=== PATIENT | male | born 1950 | race Caucasian/White ===

== ENCOUNTER → 2024-05-05 | Outpatient (CLI) | payer MEDICARE, OTHER, SELFPAY ==
[2024-05-05 15:29] LABS: Cardiac Risk Estimate 1.9 RATIO (4.0-6.7); Cholesterol 122 mg/dL (132-200); HDL Cholesterol 63 mg/dL (40-60); LDL Cholesterol,Calculated 51 mg/dL (0-130); Triglycerides 40 mg/dL (30-150)
== END | disposition home or self-care (01) ==
LOC: COPL 11:53
PROVIDERS: Referring Provider Internal Medicine Cardiovascular Disease; Visit Provider Internal Medicine Cardiovascular Disease
DX: E78.00 Pure hypercholesterolemia, unspecified (principal); Z95.1 Presence of aortocoronary bypass graft
CPT/HCPCS: 36415; 80061

== ENCOUNTER → 2024-11-15 | Outpatient (CLI) | payer MEDICARE, OTHER, SELFPAY ==
[2024-11-15 10:54] LABS: Alanine Aminotransferase 11 U/L (10-49); Albumin, Serum 4.4 gm/dL (3.4-4.8); Alkaline Phosphatase 49 U/L (46-116); Aspartate Amino Transferase 22 U/L (0-34); Bilirubin,Direct 0.3 mg/dL (0.0-0.3); Bilirubin,Total 0.9 mg/dL (0.3-1.2); Cardiac Risk Estimate 2.0 RATIO (4.0-6.7); Cholesterol 122 mg/dL (132-200); HDL Cholesterol 62 mg/dL (40-60); LDL Cholesterol,Calculated 46 mg/dL (0-130); Total Protein 6.4 gm/dL (5.7-8.2); Triglycerides 69 mg/dL (30-150)
== END | disposition home or self-care (01) ==
LOC: COPL 09:49
PROVIDERS: Referring Provider Internal Medicine Cardiovascular Disease; Visit Provider Internal Medicine Cardiovascular Disease
DX: E78.00 Pure hypercholesterolemia, unspecified (principal); I25.10 Atherosclerotic heart disease of native coronary artery without angina pectoris; Z95.1 Presence of aortocoronary bypass graft
CPT/HCPCS: 36415; 80061; 80076